=== PATIENT | female | born 2000 | race Caucasian/White ===

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

== ENCOUNTER 2021-08-16 18:50 | Emergency (ER) | payer OTHER ==
[2021-08-16 19:03] VITALS: BP 108/62; PULSE 90; TEMP 98.3; BMI 23.0
[2021-08-16] MEDS ORDERED: DEXAMETHASONE LIQUID 0.5 MG/5 ML PO ONE (19:30)
[2021-08-16] MEDS ORDERED: diphenhydrAMINE HCL 25 MG CAPSULE (FP) PO ONE ×2 (19:31→19:45)
[2021-08-16] MEDS ORDERED: DEXAMETHASONE SOD PHOSPHATE 10 MG/1 ML VIAL ONE (19:45)
== END 2021-08-16 20:02 | disposition home or self-care (01) ==
LOC: JERFT 18:50
DX: R21 Rash and other nonspecific skin eruption (principal)
CPT/HCPCS: 99283-25

== ENCOUNTER 2022-08-04 16:01 | Emergency (ER) | payer OTHER ==
[2022-08-04 16:20] VITALS: BP 115/77; PULSE 78; RESP 18; TEMP 98.1; BMI 23.9
[2022-08-04] MEDS ORDERED: KETOROLAC TROMETHAMINE 30 MG/1 ML VIAL IM ONE (17:28)
== END 2022-08-04 19:37 | disposition left against medical advice (07) ==
LOC: JERFT 16:01
DX: M54.50 Low back pain, unspecified (principal)
CPT/HCPCS: 99282-25